=== PATIENT | male | born 1990 | race Caucasian/White ===

== ENCOUNTER → 2020-04-26 | Outpatient (CLI) | payer OTHER, MEDICARE ==
[~2020-04-26] VITALS: Ht 195.6 cm; Wt 128.4 kg
[2020-04-26 08:28] LABS: HEMOGLOBIN 16.5 gm/dl (14.0-17.5); RED BLOOD COUNT 5.48 M/UL (4.20-5.50); WHITE BLOOD COUNT 7.3 K/UL (4.5-11.0)
[2020-04-26 08:55] LABS: BUN/CREATININE RATIO 15 (0-10)
== END ==
LOC: OPSV 07:30
PROVIDERS: Internal Medicine
DX: K50.818 Crohn's disease of both small and large intestine with other complication (principal)
CPT/HCPCS: 80053; 85025; 85652; 86140; 96365; 96366; 96375; J1200; J1720; J7050; Q5103

== ENCOUNTER → 2020-07-01 | Outpatient (CLI) | payer OTHER, MEDICARE ==
[~2020-07-01] VITALS: Ht 195.6 cm; Wt 128.4 kg
[2020-07-01 09:02] LABS: RED BLOOD COUNT 5.33 M/UL (4.20-5.50); WHITE BLOOD COUNT 6.7 K/UL (4.5-11.0)
[2020-07-01 09:27] LABS: BUN/CREATININE RATIO 18 (0-10)
== END ==
LOC: OPSV 08:31
PROVIDERS: Internal Medicine Gastroenterology
DX: K50.818 Crohn's disease of both small and large intestine with other complication (principal)
CPT/HCPCS: 80053; 85025; 85652; 86140; 96365; 96366; J1200; J1720; J7050; Q5103

== ENCOUNTER → 2020-07-30 | Outpatient (CLI) | payer OTHER, MEDICARE | LOC: KOH-I 12:48 | DX: E01.0 Iodine-deficiency related diffuse (endemic) goiter (principal) | CPT/HCPCS: 76536 ==

== ENCOUNTER → 2020-08-26 | Outpatient (CLI) | payer OTHER, MEDICARE ==
[~2020-08-26] VITALS: Ht 195.6 cm; Wt 128.4 kg
[2020-08-26 10:30] LABS: RED BLOOD COUNT 5.53 M/UL (4.20-5.50)
[2020-08-26 11:02] LABS: BUN/CREATININE RATIO 18 (0-10)
== END ==
LOC: OPSV 09:00
PROVIDERS: Internal Medicine Gastroenterology
DX: K50.818 Crohn's disease of both small and large intestine with other complication (principal)
CPT/HCPCS: 80053; 85025; 85652; 86140; 96365; 96366; 96375; J1200; J1720; J7050; Q5103

== ENCOUNTER → 2020-10-21 | Outpatient (CLI) | payer OTHER, MEDICARE ==
[~2020-10-21] VITALS: Ht 195.6 cm; Wt 123.4 kg
== END ==
LOC: OPSV 10-20 16:30
DX: K50.818 Crohn's disease of both small and large intestine with other complication (principal)
CPT/HCPCS: 96365; 96366; J1720; J7050; Q5103

== ENCOUNTER → 2020-12-16 | Outpatient (CLI) | payer OTHER, MEDICARE ==
[~2020-12-16] VITALS: Ht 195.6 cm; Wt 128.4 kg
[2020-12-16 11:40] LABS: HEMOGLOBIN 16.1 gm/dl (14.0-17.5); RED BLOOD COUNT 5.5 M/UL (4.20-5.50); WHITE BLOOD COUNT 6.1 K/UL (4.5-11.0)
[2020-12-16 12:01] LABS: BUN/CREATININE RATIO 19 (0-10)
== END ==
LOC: OPSV 11:00
PROVIDERS: Internal Medicine Gastroenterology
DX: K50.818 Crohn's disease of both small and large intestine with other complication (principal)
CPT/HCPCS: 36415; 80053; 85025; 85652; 86140; 96365; 96366; 96375; J1720; J7050; Q5103

== ENCOUNTER → 2021-02-10 | Outpatient (CLI) | payer OTHER, MEDICARE ==
[~2021-02-10] VITALS: Ht 195.6 cm; Wt 123.8 kg
== END ==
LOC: OPSV 11:00
DX: K50.818 Crohn's disease of both small and large intestine with other complication (principal)
CPT/HCPCS: 96365; 96366; 96375; J1720; J7050; Q5103

== ENCOUNTER → 2021-04-07 | Outpatient (CLI) | payer OTHER, MEDICARE ==
[~2021-04-07] VITALS: Ht 195.6 cm; Wt 128.4 kg
[2021-04-07 11:38] LABS: RED BLOOD COUNT 5.31 M/UL (4.20-5.50); WHITE BLOOD COUNT 6.5 K/UL (4.5-11.0)
[2021-04-07 12:49] LABS: BUN/CREATININE RATIO 22 (0-10)
== END ==
LOC: OPSV 10:58
PROVIDERS: Internal Medicine Gastroenterology
DX: K50.818 Crohn's disease of both small and large intestine with other complication (principal)
CPT/HCPCS: 80053; 85025; 85652; 86140; 96365; 96366; 96375; J1720; J7050; Q5103

== ENCOUNTER → 2021-06-02 | Outpatient (CLI) | payer OTHER, MEDICARE ==
[~2021-06-02] VITALS: Ht 195.6 cm; Wt 128.4 kg
== END ==
LOC: OPSV 11:00
DX: K50.818 Crohn's disease of both small and large intestine with other complication (principal)
CPT/HCPCS: 96375; 96413; 96415; J1720; J7050; Q5103

== ENCOUNTER → 2021-08-09 | Outpatient (CLI) | payer OTHER, MEDICARE ==
[~2021-08-09] VITALS: Ht 195.6 cm; Wt 128.4 kg
[2021-08-09 11:55] LABS: HEMOGLOBIN 16.8 gm/dl (14.0-17.5); RED BLOOD COUNT 5.55 M/UL (4.20-5.50); WHITE BLOOD COUNT 11.7 K/UL (4.5-11.0)
[2021-08-09 12:26] LABS: BUN/CREATININE RATIO 18 (0-10)
== END ==
LOC: OPSV 07-28 11:00
PROVIDERS: Internal Medicine Gastroenterology
DX: K50.818 Crohn's disease of both small and large intestine with other complication (principal)
CPT/HCPCS: 80053; 85025; 85652; 86140; 96375; 96413; 96415; J1720; J7050; Q5103

== ENCOUNTER → 2021-10-11 | Outpatient (CLI) | payer OTHER, MEDICARE ==
[~2021-10-11] VITALS: Ht 195.6 cm; Wt 128.4 kg
[2021-10-11 11:40] LABS: HEMOGLOBIN 16.8 gm/dl (14.0-17.5); RED BLOOD COUNT 5.46 M/UL (4.20-5.50); WHITE BLOOD COUNT 6.7 K/UL (4.5-11.0)
[2021-10-11 12:12] LABS: BUN/CREATININE RATIO 16 (0-10)
== END ==
LOC: OPSV 11:00
PROVIDERS: Internal Medicine Gastroenterology
DX: K50.818 Crohn's disease of both small and large intestine with other complication (principal)
CPT/HCPCS: 80053; 85025; 85652; 86140; 96375; 96413; 96415; J1720; J7050; Q5103

== ENCOUNTER → 2021-12-06 | Outpatient (CLI) | payer OTHER, MEDICARE ==
[~2021-12-06] VITALS: Ht 195.6 cm; Wt 128.4 kg
[2021-12-06 10:24] LABS: RED BLOOD COUNT 5.26 M/UL (4.20-5.50); WHITE BLOOD COUNT 6.4 K/UL (4.5-11.0)
[2021-12-06 10:41] LABS: BUN/CREATININE RATIO 19 (0-10)
== END ==
LOC: OPSV 09:30
PROVIDERS: Internal Medicine Gastroenterology
DX: K50.818 Crohn's disease of both small and large intestine with other complication (principal)
CPT/HCPCS: 80053; 85025; 85652; 86140; 96375; 96413; 96415; J1720; J7050; Q5103